=== PATIENT | female | born 2005 | race Hispanic/Latino ===

== ENCOUNTER 2024-05-05 10:09 | Emergency (ER) | payer SELFPAY ==
[~2024-05-05] VITALS: Ht 160 cm; Wt 63.5 kg
[2024-05-05] MEDS ORDERED: Diph, Acellular Pertussis, Tet 0.5 ML/VIAL (Tdap) SDV IM ONE (10:35)
[2024-05-05] MEDS ORDERED: MUPIROCIN (PSEUDOMONAS FLUORES 22 GM/TUBE TUBE TOP ONE (10:40)
[2024-05-05] MEDS ORDERED: CEPHALEXIN500 M1 PO (10:41)
[2024-05-05] MEDS ORDERED: MUPIROCIN21 TOP (10:42)
== END 2024-05-05 11:33 | disposition home or self-care (01) | DRG 605 ==
LOC: ED 10:09
DX: S61.411A Laceration without foreign body of right hand, initial encounter (principal); W29.0XXA Contact with powered kitchen appliance, initial encounter; Y93.G1 Activity, food preparation and clean up; Y92.000 Kitchen of unspecified non-institutional (private) residence as the place of occurrence of the external cause